=== PATIENT | male | born 1975 | race Two or more races ===

== ENCOUNTER 2017-04-21 14:48 | Emergency (ER) | payer MEDICAID, OTHER ==
[2017-04-21] MEDS ORDERED: DIAZEPAM 5 MG/ML SYG IM (17:30)
[2017-04-21] MEDS: KETOROLAC 30 MG INJ IM (17:55)
[2017-04-21] MEDS: ONDANSETRON (ODT) 4 MG TAB ODT (17:56)
[2017-04-21] MEDS: HYDROmorphONE 1 MG/ML SYG IM (18:02)
== END 2017-04-21 18:22 | disposition home or self-care (01) ==
LOC: FTE 14:48
DX: S39.012A Strain of muscle, fascia and tendon of lower back, initial encounter (principal); X58.XXXA Exposure to other specified factors, initial encounter; Y92.9 Unspecified place or not applicable
CPT/HCPCS: 96372; 99284-25